=== PATIENT | male | born 1975 | race Caucasian/White ===

== ENCOUNTER 2016-06-12 06:15 | Day surgery (SDC) | payer OTHER ==
[2016-06-12] MEDS ORDERED: Lactated Ringers 1,000 ML IV SCH (07:00)
[2016-06-12] MEDS ORDERED: DIPRIVAN 200 MG/20 ML IV ONE (07:52)
[2016-06-12] MEDS ORDERED: Versed 2 MG/2 ML Injection IV ONE (07:52)
--- NOTE | 2016-06-12 09:09 | OP ---
SURGERY DATE: 06/12/16 SURGERY TIME: 739 PREOPERATIVE DIAGNOSIS: 1. EPIGASTRIC PAIN. 2. CHRONIC VOMITING. POSTOPERATIVE DIAGNOSIS: 1. MILD GASTRITIS. PROCEDURE: 1. Esophagogastroduodenoscopy with biopsy. SURGEON: Dr. Mariee. ANESTHESIA: MAC, medications given by the Anesthesia Department. BRIEF HISTORY: The patient is a 40 y/o WM patient with complaints of abdominal pain and now vomiting. The patient uses narcotic medications in fairly large doses for chronic back pain. The patient was felt to need to have endoscopic evaluation due to the persistence of his epigastric pain and vomiting despite medical treatment. The patient was appraised of the risks of the procedure including the risk of perforation, phlebitis, untoward reaction to medication, bleeding, and missed lesions. The patient verbalized his understanding and desired to have the procedure performed. DESCRIPTION OF PROCEDURE: The patient was given the medications by the Anesthesia Department. He had continuous pulse oximetry, ECG monitoring, intermittent BP monitoring, and end tidal CO2 monitoring during the examination. He was placed in the left lateral decubitus position. A bite block was placed and the flexible Olympus gastroscope was used to intubate the oropharynx. A view of the larynx was obtained and was normal. The scope was easily introduced in the esophagus which appeared to be normal throughout its length. The stomach was entered where normal gastric rugal folds were seen and these distended nicely with the insufflation of air. The scope was passed along the greater curvature of the stomach to the antrum. The pylorus was encountered and intubated. The duodenum was inspected and found to be normal. The scope was withdrawn towards the stomach again. A retroflex view was obtained of the lesser curvature, fundus, and cardia regions of the stomach and these appeared to be normal. The scope was redirected towards the gastric antrum and biopsies were obtained to rule out the presence of Helicobacter pylori type organisms. The scope was then removed from the patient who tolerated the procedure well and was sent back to outpatient recovery in good condition.
[2016-06-12 09:47] VITALS: BP 143/91; PULSE 89; O2SAT 97
== END 2016-06-12 09:15 | disposition home or self-care (01) ==
LOC: SDC 06:15
PROVIDERS: ATTEND Family Medicine
PROC: 0DB68ZX Excision of Stomach, Via Natural or Artificial Opening Endoscopic, Diagnostic (ICD-10-PCS; principal; 2016-06-12)
DX: K29.70 Gastritis, unspecified, without bleeding (principal); R11.10 Vomiting, unspecified
CPT/HCPCS: 00740; 36415; 88305; 88312; J2250; J2704